=== PATIENT | male | born 1985 | race Caucasian/White ===

== ENCOUNTER 2018-02-16 12:04 | Observation (INO) | payer OTHER ==
[~2018-02-16] VITALS: Ht 180.3 cm; Wt 99.8 kg
--- NOTE | 2018-02-16 12:05 | NUR ---
PT AMBULATES TO BED 10 WITH LIMP
[2018-02-16 12:09] VITALS: BP 127/74
--- NOTE | 2018-02-16 12:09 | NUR ---
PATIENT PRESENTS TO ED WITH C/O NUMBNESS TO LLE , FOOT DROP X 2 DAYS---AWOKE WITH UNABLE TO AMBULATE NORMALLY STATES NUMBNESS FROM THIGH DOWN TO FOOT +2 PEDAL PULSE <3 SEC CAP REFILL; COLD LLE VS WARM RLE DENIES INJURY . PT STATES . DENIES N/V/D; SKIN IS PINK/WARM/DRY; AAOX4 WITH EVEN AND STEADY GAIT; LUNGS CLEAR BL; HR EVEN AND REGULAR; PT DENIES ANY FEVER, CP, SOB, OR COUGH AT THIS TIME; PATIENT STATES PAIN OF 7/10 AT THIS TIME; VSS; PATIENT POSITIONED FOR COMFORT; HOB ELEVATED; BEDRAILS UP X2; BED DOWN. ER MD MADE AWARE OF PT STATUS.
[2018-02-16] MEDS ORDERED: NACL 0.9% 1,000 ML IV ONE (12:30)
--- NOTE | 2018-02-16 12:30 | NUR ---
UNABLE TO INSERT IV LINE. CHARGE NURSE NOTIFIED
[2018-02-16 13:02] LABS: BASOPHILS % (AUTO) 0.5 % (0.0-2.0); EOSINOPHILS # (AUTO) 0.2 K/uL (0-0.4); EOSINOPHILS % (AUTO) 2.6 % (0.0-4.0); HEMATOCRIT 45.3 % (36-52); HEMOGLOBIN 14.6 g/dL (12.0-18.0); LYMPHOCYTES # (AUTO) 1.2 K/uL (2.0-11.5); MEAN CORPUSCULAR HEMOGLOBIN 28 pg (27-31); MEAN CORPUSCULAR HGB CONC 32 g/dL (33-37); MEAN CORPUSCULAR VOLUME 85.4 fL (80-94); MONOCYTES # (AUTO) 0.6 K/uL (0.8-1.0); MONOCYTES % (AUTO) 6.4 % (1.7-9.3); NEUTROPHILS # (AUTO) 6.7 K/uL (1.8-7.7); NEUTROPHILS % (AUTO) 76.5 % (42.2-75.2); PLATELET COUNT (AUTO) 341 K/uL (140-450); RED BLOOD CELL COUNT(AUTO) 5.31 MIL/uL (4.20-6.10); RED CELL DISTRIBUTION WIDTH 15.9 % (11.6-13.7); WHITE BLOOD COUNT (AUTO) 8.7 K/uL (4.8-10.8)
[2018-02-16 13:17] LABS: ALBUMIN 3.8 g/dL (3.4-5.0); ANION GAP 14.1 (8-16); CARBON DIOXIDE 27.4 mmol/L (21-32); CREATININE 0.9 mg/dL (0.7-1.3); POTASSIUM 3.5 mmol/L (3.5-5.1); TOTAL BILIRUBIN 0.2 mg/dL (0.0-1.0)
[2018-02-16 13:24] LABS: PROTHROMBIN TIME 9.3 secs (10.8-13.4)
--- NOTE | 2018-02-16 14:00 | NUR ---
DR. KNAPP, [facility], DAVID RN AT BEDSIDE FOR CENTRAL LINE INSERTION.
[2018-02-16] MEDS ORDERED: LORazepam 2 MG/ML VIAL IVP ONE (14:20)
[2018-02-16] MEDS ORDERED: LORazepam 2 MG/ML VIAL ONE (14:27)
--- NOTE | 2018-02-16 14:44 | NUR ---
PT RETURNED FROM CT
[2018-02-16] MEDS ORDERED: ONDANSETRON 4 MG/2 ML VIAL IVP PRN (17:20)
[2018-02-16] MEDS ORDERED: ACETAMINOPHEN 325 MG TAB PO PRN (17:20)
[2018-02-16] MEDS ORDERED: MORPHINE SULFATE 4 MG/ML SYR IVP PRN (17:20)
[2018-02-16] MEDS ORDERED: CYCLOBENZAPRINE 10 MG TAB PO PRN (17:25)
--- NOTE | 2018-02-16 17:51 | NUR ---
PT TAKEN TO [facility] FLOOR BY FREDRICK GUTIÉRREZ VIA WHEELCHAIR
--- NOTE | 2018-02-16 18:00 | NUR ---
Patient will be admitted to care of DR HYMAN. Admited to [facility] [[email or web address] Will go to room 120B. Belongings list completed. Report to FREDRICK RICH.
--- NOTE | 2018-02-16 18:10 | NUR ---
RECEIVED REPORT FROM ER NURSE FOR CONTINUITY OF CARE. PT IN STABLE CONDITION. RESPIRATIONS EVEN AND UNLABORED. SAFETY MEASURES IN PLACE. BED IN LOW POSITION. CALL LIGHT AT BEDSIDE. WILL CONTINUE TO MONITOR.
--- NOTE | 2018-02-16 19:28 | NUR ---
BEDSIDE REPORT GIVEN FROM RN HILARIO, PATIENT IN BED, ON RA, NO SIGHS OF ACUTE DISTRESS, ADMISSION QUESTIONED ANSWERED, NO IV ACCESS, PATIENT IS TO HAVE PICC LINE INSERTED, CONSENT IN CHART. UPDATED BOARD, EXPLAINED PLAN OF CARE, WILL CONTINUE TO MONITOR.
--- NOTE | 2018-02-16 19:28 | NUR ---
GAVE REPORT TO HEADSTART TEACHER NURSE FOR CONTINUITY OF CARE. PT IN STABLE CONDITION.
--- NOTE | 2018-02-16 19:45 | NUR ---
PICC LINE NURSE NING AND HEAT TREAT FURNACE OPERATOR AT BEDSIDE, CONSENT SIGNED AND IN CHART, SUPPLIES FOR PICC LINE INSERTION AT BEDSIDE. TIME OUT COMPLETED.
--- NOTE | 2018-02-16 20:00 | NUR ---
[facility] COLLECTED AND SENT TO LAB.
--- NOTE | 2018-02-16 20:15 | NUR ---
PICC LINE INSERTED ON RIGHT UPPER ARM, PLACED ORDER FOR XRAY, RADIOLOGIST TECH AT BEDSIDE.
--- NOTE | 2018-02-16 20:30 | NUR ---
DRESSING SLIGHT BLOOD NOTED, PATIENT DENIES PAIN, BLUE CAPS APPLIED, WILL CONTINUE TO MONITOR.
[2018-02-16 20:44] VITALS: BP 128/72
[2018-02-17] VITALS: BP 118/76
--- NOTE | 2018-02-17 | NUR ---
V/S TAKEN ALL WITHIN NORMAL LIMITS, PATIENT DENIES PAIN, CALL LIGHT WITHIN REACH, WILL CONTINUE TO MONITOR.
[2018-02-17] MEDS: HYDROcodone/APAP 5/325 MG 1 TAB TAB PO PRN ×3 (02:23→10:38)
--- NOTE | 2018-02-17 02:23 | NUR ---
PATIENT C/O PAIN IN LEFT FOOT 6/10, ACHING, MEDICATED ACCORDING TO MD ORDER FOR PAIN.
--- NOTE | 2018-02-17 04:10 | NUR ---
PATIENT RESTING IN BED, NO SIGNS OF ACUTE DISTRESS, CALL LIGHT WITHIN REACH, WILL CONTINUE TO MONITOR.
--- NOTE | 2018-02-17 06:23 | NUR ---
PICC LINE DRESSING CHANGED, PATIENT C/O PAIN 08/03 WILL MEDICATE ACCORDING TO MD ORDER.
--- NOTE | 2018-02-17 06:42 | NUR ---
PATIENT HAS BEEN SCREENED AND CATEGORIZED LOW NUTRITION RISK. PATIENT WILL BE SEEN WITHIN 7 DAYS OF ADMISSION. 02/23/18 CHITO ONOFRE MS, RDN
--- NOTE | 2018-02-17 07:08 | NUR ---
ENDORSED PATIENT TO DAY SHIFT NURSE, PATIENT STABLE.
--- NOTE | 2018-02-17 07:09 | NUR ---
RECEIVED REPORT FROM NEWSPAPER CARRIER NURSE. PATIENT LYING DOWN IN BED SLEEPING, AROUSABLE BY VOICE. NO DISTRESS NOTED. DENIES ANY PAIN AT THIS TIME. AAOX4, CALM, COOPERATIVE, SKIN COLOR APPROPRIATE TO ETHNICITY, WARM TO TOUCH. SKIN IS INTACT. HAS RIGHT UPPER ARM PICC LINE [address], INTACT, AND PATENT. ABLE TO AMBULATE INDEPENDENTLY WITH LIMPING GAIT ON LEFT LEG. ABDOMEN SOFT, NON-DISTENDED. LUNGS CTA ON ALL LOBES. RESPIRATIONS EVEN, UNLABORED, ON ROOM AIR. REVIEWED PLAN OF CARE WITH PATIENT. PATIENT VERBALIZED UNDERSTANDING. SAFETY MEASURES IN PLACE, CALL LIGHT WITHIN REACH. WILL CONTINUE TO MONITOR.
[2018-02-17 07:47] LABS: CARBON DIOXIDE 28.1 mmol/L (21-32); CREATININE 0.8 mg/dL (0.7-1.3)
[2018-02-17 07:50] LABS: BASOPHILS # (AUTO) 0.1 K/uL (0.00-0.22); BASOPHILS % (AUTO) 0.6 % (0.0-2.0); EOSINOPHILS # (AUTO) 0.2 K/uL (0-0.4); EOSINOPHILS % (AUTO) 2.4 % (0.0-4.0); HEMATOCRIT 41.1 % (36-52); HEMOGLOBIN 13.2 g/dL (12.0-18.0); LYMPHOCYTES # (AUTO) 1.9 K/uL (2.0-11.5); LYMPHOCYTES % (AUTO) 17.7 % (20.5-51.1); MEAN CORPUSCULAR HEMOGLOBIN 27 pg (27-31); MEAN CORPUSCULAR HGB CONC 32 g/dL (33-37); MEAN CORPUSCULAR VOLUME 85.2 fL (80-94); MONOCYTES # (AUTO) 0.7 K/uL (0.8-1.0); MONOCYTES % (AUTO) 6.9 % (1.7-9.3); NEUTROPHILS # (AUTO) 7.7 K/uL (1.8-7.7); NEUTROPHILS % (AUTO) 72.4 % (42.2-75.2); PLATELET COUNT (AUTO) 297 K/uL (140-450); RED BLOOD CELL COUNT(AUTO) 4.83 MIL/uL (4.20-6.10); RED CELL DISTRIBUTION WIDTH 16.2 % (11.6-13.7); WHITE BLOOD COUNT (AUTO) 10.6 K/uL (4.8-10.8)
[2018-02-17 07:51] LABS: MAGNESIUM 2.2 mg/dL (1.8-2.4); PHOSPHORUS 2.8 mg/dL (2.5-4.9)
[2018-02-17 07:54] VITALS: BP 125/65
[2018-02-17 08:15] LABS: ANION GAP 11.6 (8-16); POTASSIUM 3.7 mmol/L (3.5-5.1)
[2018-02-17] MEDS ORDERED: NICOTINE TRANSD SYS 14 MG/24 HR PATCH TD SCH (09:05)
--- NOTE | 2018-02-17 09:31 | NUR ---
RECEIVED REPORT FROM ELAINA ALCALA. PATIENT RESTING IN BED, AOX4. NO DISTRESS NOTED. NO C/O PAIN OR DISCOMFORT AT THIS TIME. SKIN INTACT. HAS RIGHT UPPER ARM PICC LINE [address], PATENT AND ASYMPTOMATIC. PER ELAINA ALCALA, PT IS ABLE TO AMBULATE INDEPENDENTLY WITH LIMPING GAIT ON LEFT LEG. ALL SAFETY MEASURES IN PLACE, CALL LIGHT WITHIN REACH. WILL CONTINUE TO MONITOR.
--- NOTE | 2018-02-17 09:46 | NUR ---
GAVE REPORT TO FREDRICK SCHERER FOR CONTINUITY OF CARE. PATIENT IN STABLE CONDITION.
[2018-02-17] MEDS ORDERED: NICOTINE TRANSD SYS 21 MG/24 HR PATCH TD SCH (10:07)
--- NOTE | 2018-02-17 11:54 | NUR ---
WRAPPED IV SITE AND COVERED NICOTINE PATCH WITH PATCH. HELPED PATIENT TO THE SHOWER. GAIT EVEN AND STEADY WITH SLIGHT LIMP TO LT LEG. AOX4. ALL SAFETY PRECAUTIONS IN PLACE, WILL CONTINUE TO MONITOR.
--- NOTE | 2018-02-17 12:23 | NUR ---
DR. HYMAN HAS SEEN PATIENT AND DISCUSSED POC WITH PATIENT. PT VERBALIZED COMPLETE UNDERSTANDING.
[2018-02-17] MEDS ORDERED: CYCL10TA14 PO (12:25)
[2018-02-17] MEDS ORDERED: ACET-9525 PO (12:25)
[2018-02-17] MEDS ORDERED: GABA300C PO (12:25)
--- NOTE | 2018-02-17 13:30 | NUR ---
FOR HOME HEALTH PHYSICAL THERAPY, PT PREFERS TO BE CALLED AT [phone] (SAMY HIGUERA - MOTHER).
--- NOTE | 2018-02-17 13:35 | NUR ---
ALL DISCHARGE PAPERWORK GIVEN TO PT. NEW PRESCRIPTIONS GIVEN TO PT ALONG WITH MEDICATION TEACHING. PT INSTRUCTED TO FOLLOW UP WITH PCP WITHIN 1-2 WEEKS. HOME HEALTH PT WILL BE SET UP BY SS. PT VERBALIZED COMPLETE UNDERSTANDING OF ALL DISCHARGE TEACHING. PT REFUSED FLU VACCINE. RT UA PICC LINE REMOVED WITH MINIMAL BLOOD LOSS AND LUMEN COMPLETELY INTACT. ID BANDS REMOVED. ALL PERSONAL BELONGINGS ARE WITH PATIENT. PT DISCHARGED FROM UNIT VIA WHEELCHAIR.
[2018-02-18] MEDS ORDERED: NICOTINE TRANSD SYS 21 MG/24 HR PATCH TD SCH (09:00)
[2018-02-18] MEDS ORDERED: NICOTINE TRANSD SYS 14 MG/24 HR PATCH TD SCH (09:00)
--- NOTE | 2018-02-18 11:10 | NUR ---
HAD AN ORDER FOR HOME HEALTH FOR SAFETY DESIREE AND HOME P.T. I CALLED [facility] AND SPOKE WITH OSMANI AND FAXED ORDER, H&P AND FACE SHEET TO HER AT [phone]. PHONE [phone]. OSMANI SAID SHE WOULD TAKE CARE OF [facility].
== END 2018-02-17 13:35 | disposition home health service (06) ==
LOC: MED 12:04 → MTU 17:19
PROVIDERS: ADMIT Internal Medicine Pulmonary Disease; ATTEND Internal Medicine Pulmonary Disease
DX: M51.36 Other intervertebral disc degeneration, lumbar region (principal); M51.16 Intervertebral disc disorders with radiculopathy, lumbar region; R26.2 Difficulty in walking, not elsewhere classified; F17.200 Nicotine dependence, unspecified, uncomplicated
CPT/HCPCS: 36415; 70450; 71045; 72131; 76937; 80048; 80053; 83735; 84100; 85025; 85610; 85730; 87081; 96374; 99284; C1751; G0378; J2060; Q0092; 96372; 99285; J7030

== ENCOUNTER 2019-02-23 03:00 | Emergency (ER) | payer SELFPAY ==
[~2019-02-23] VITALS: Ht 182.9 cm; Wt 99.8 kg
[~2019-02-23 03:00] MED LIST: ACET-9525 PO; CYCL10TA14 PO; GABA300C PO
[2019-02-23 03:05] VITALS: BP 150/76
--- NOTE | 2019-02-23 03:05 | NUR ---
TO BED # 03 AMBULATORY
--- NOTE | 2019-02-23 03:25 | NUR ---
Note gioone in EDM - 02/23/19 at 0447 by ALHAJI PT DISCHARGED WITH PAPERWORK. EDUCATED PT REGARDING MEDICATIONS AND D/C INSTRUCTIONS. PT VERBALIZED UNDERSTANDING OF TEACHING. TOLD PT TO FOLLOW UP WITH PCP AND WHEN TO RETURN TO ED. PT STABLE CONDITION. ALL QUESTIONS ANSWERED.
--- NOTE | 2019-02-23 03:37 | NUR ---
34 Y/O MALE PRESENTS TO ED, C/O LEFT FINGER PAIN 10/03. PAIN STARTED LAST FRIDAY. LEFT MIDDLE FINGER HAS SWELLING AND REDNESS; WARM TO TOUCH. LIMITED ROM ON AFFECTED DIGIT DUE TO PAIN AND SWELLING. PT DENIES TAKING ANY MEDICATIONS PRIOR COMING TO ED. PT AT STABLE CONDITION. ERMD AWARE. WILL CONTINUE TO MONITOR.
--- NOTE | 2019-02-23 03:44 | NUR ---
XRAY AT BEDSIDE
[2019-02-23] MEDS ORDERED: CEPHALEXIN 500 MG CAP PO ONE (03:50)
[2019-02-23] MEDS ORDERED: SULFAMETH/TRIMETH DS 800/160MG 1 TAB PO ONE (03:50)
[2019-02-23] MEDS ORDERED: IBUPROFEN 800 MG TAB PO ONE (03:50)
[2019-02-23 04:25] VITALS: BP 143/77
--- NOTE | 2019-02-23 04:25 | NUR ---
PT DISCHARGED WITH PAPERWORK. EDUCATED PT REGARDING MEDICATIONS AND D/C INSTRUCTIONS. PT VERBALIZED UNDERSTANDING OF TEACHING. TOLD PT TO FOLLOW UP WITH PCP AND WHEN TO RETURN TO ED. PT STABLE CONDITION. ALL QUESTIONS ANSWERED.
== END 2019-02-23 04:25 | disposition home or self-care (01) ==
LOC: MED 03:00
DX: L03.012 Cellulitis of left finger (principal); R03.0 Elevated blood-pressure reading, without diagnosis of hypertension; Z79.899 Other long term (current) drug therapy
CPT/HCPCS: 73140; 99284; Q0092

== ENCOUNTER 2019-06-20 11:45 | Inpatient (IN) | payer SELFPAY ==
[~2019-06-20] VITALS: Ht 182.9 cm; Wt 90.7 kg
--- NOTE | 2019-06-20 11:48 | NUR ---
PT TAKEN TO BED 6.
[2019-06-20 11:52] VITALS: BP 124/73
[2019-06-20] MEDS ORDERED: AMPICILLIN/SULBACTAM 3 GM in NACL 0.9% MINI-BAG PLUS 100 ML IV ONE (12:15)
[2019-06-20] MEDS ORDERED: KETOROLAC 30 MG/ML VIAL IVP ONE (12:15)
[2019-06-20] MEDS ORDERED: NACL 0.9% 1,000 ML IV SCH (12:15)
[2019-06-20 12:30] LABS: BASOPHILS % (AUTO) 0.2 % (0.0-2.0); EOSINOPHILS # (AUTO) 0.4 K/uL (0-0.4); HEMOGLOBIN 12.6 g/dL (12.0-18.0); LYMPHOCYTES # (AUTO) 1.4 K/uL (2.0-11.5); LYMPHOCYTES % (AUTO) 10.3 % (20.5-51.1); MEAN CORPUSCULAR HEMOGLOBIN 28 pg (27-31); MEAN CORPUSCULAR HGB CONC 32 g/dL (33-37); MEAN CORPUSCULAR VOLUME 85.5 fL (80-94); MONOCYTES # (AUTO) 1.2 K/uL (0.8-1.0); MONOCYTES % (AUTO) 8.7 % (1.7-9.3); NEUTROPHILS # (AUTO) 10.6 K/uL (1.8-7.7); NEUTROPHILS % (AUTO) 77.8 % (42.2-75.2); PLATELET COUNT (AUTO) 320 K/uL (140-450); RED BLOOD CELL COUNT(AUTO) 4.57 MIL/uL (4.20-6.10); RED CELL DISTRIBUTION WIDTH 13.8 % (11.6-13.7); WHITE BLOOD COUNT (AUTO) 13.6 K/uL (4.8-10.8)
[2019-06-20] MEDS ORDERED: AMPICILLIN/SULBACTAM 3 GM VIAL ONE (12:48)
[2019-06-20 13:08] LABS: ANION GAP 14.4 (8-16); CREATININE 0.9 mg/dL (0.6-1.3); POTASSIUM 3.4 mmol/L (3.5-5.1)
--- NOTE | 2019-06-20 14:22 | NUR ---
Stable VSS Afebrile Minimal pain MD has spoke to patient and a call is out for primary Awaiting return call Has had Abx as ordered
[2019-06-20] MEDS ORDERED: DOCUSATE SODIUM 100 MG GELCAP PO PRN (15:10)
[2019-06-20] MEDS ORDERED: ACETAMINOPHEN 325 MG TAB PO PRN (15:10)
[2019-06-20] MEDS ORDERED: LORazepam 2 MG/ML VIAL IM/IVP PRN (15:10)
[2019-06-20] MEDS ORDERED: HYDROcodone/APAP 5/325 MG 1 TAB TAB PO PRN (15:10)
[2019-06-20] MEDS ORDERED: ONDANSETRON 4 MG/2 ML VIAL IM/IVP PRN (15:10)
[2019-06-20] MEDS ORDERED: ZOLPIDEM 5 MG TAB PO PRN (15:10)
[2019-06-20] MEDS ORDERED: MORPHINE SULFATE 2 MG/ML SYR IVP PRN (15:10)
[2019-06-20] MEDS: NACL 0.9% 1,000 ML IV SCH (15:27)
[2019-06-20] MEDS ORDERED: VANCOMYCIN 1,000 MG in DEXTROSE 5% 250 ML IV ONE (16:00)
[2019-06-20] MEDS ORDERED: VANCOMYCIN 1,000 MG VIAL ONE (16:23)
[2019-06-20 16:30] LABS: PROTHROMBIN TIME 9.8 secs (10.8-13.4)
[2019-06-20 16:45] LABS: FREE T4 (FREE THYROXINE) 0.91 ng/dL (0.76-1.46); MAGNESIUM 2.3 mg/dL (1.8-2.4); THYROID STIMULATING HORMONE 1.42 uIU/mL (0.34-3.74)
[2019-06-20 17:13] LABS: CHOL/HDL RATIO 3.7 (1-4.5)
[2019-06-20 17:15] LABS: CARBON DIOXIDE 25.4 mmol/L (21-32); POTASSIUM 3.4 mmol/L (3.5-5.1)
[2019-06-20 17:16] LABS: ALBUMIN 3.5 g/dL (3.4-5.0); CREATININE 0.9 mg/dL (0.6-1.3); TOTAL BILIRUBIN 0.6 mg/dL (0.0-1.0)
--- NOTE | 2019-06-20 17:19 | NUR ---
Stable. VSS. Afebrile. Minimal pain. Second Abx given as ordered. Has had 1 liter of NS and is recieving NS at 130 Q HR. Has been admitted Awaiting bed on floor
[2019-06-20 17:25] LABS: APPEARANCE,URINE CLEAR (CLEAR); BILIRUBIN,URINE NEGATIVE (NEGATIVE); BLOOD, URINE NEGATIVE (NEGATIVE); LEUKOCYTE ESTERASE ,URINE NEGATIVE (NEGATIVE); NITRITE, URINE NEGATIVE (NEGATIVE); PH,URINE 6.5 (5.0-9.0); UGLUCOSE NEGATIVE (NEGATIVE)
[2019-06-20 17:27] LABS: COLOR,URINE AMBER (YELLOW)
[2019-06-20 17:37] LABS: BARBITURATE, URINE NEGATIVE ng/ml (NEG <=200); BENZODIAZEPINE, URINE NEGATIVE ng/mL (NEG <=200); CANNABINOID, URINE NEGATIVE ng/mL (NEG <=50); COCAINE, URINE NEGATIVE ng/mL (NEG <=300)
[2019-06-20 17:38] LABS: OPIATE, URINE POSITIVE ng/mL (NEG <=2000); PHENCYCLIDINE SCREEN,URINE NEGATIVE ng/mL (NEG <=25)
[2019-06-20] MEDS ORDERED: LORazepam 2 MG/ML VIAL IVP ONE (18:50)
[2019-06-20] MEDS ORDERED: NICOTINE TRANSD SYS 21 MG/24 HR PATCH TD SCH (20:00)
--- NOTE | 2019-06-20 21:41 | NUR ---
PT SLEEPING IN BED, VISIBLE SYMMETRICAL RISE AND FALL OF CHEST, NO DISTRESS NOTED, VSS
--- NOTE | 2019-06-21 00:08 | NUR ---
PT ASLEEP IN BED. RR EVEN AND UNLABORED. VSS. ALL NEEDS MET WILL CONTINUE TO MONTIOR.
[2019-06-21] MEDS ORDERED: VANCOMYCIN PER PHARMACY MC PRN (00:45)
[2019-06-21] MEDS ORDERED: VANCOMYCIN 1,000 MG in DEXTROSE 5% 250 ML IV ONE (01:10)
[2019-06-21] MEDS ORDERED: VANCOMYCIN 1,000 MG VIAL ONE (01:46)
--- NOTE | 2019-06-21 01:57 | NUR ---
PT SLEEPING IN BED, AROUSABLE TO LIGHT SHAKING, PT AAOX4, VSS.
--- NOTE | 2019-06-21 06:15 | NUR ---
PTSLEEPING IN BED, AROUSABLE TO VOICE, AAOX4, COOPERATIVE SPEAKING IN FULL COMPLETE SENTENCES, DENIES PAIN AT THIS TIME, VSS.
[2019-06-21] MEDS: NACL 0.9% 1,000 ML IV SCH ×2 (06:34→08:48)
--- NOTE | 2019-06-21 07:05 | NUR ---
RECEIVED PT. FROM ER NURSE. PT. IS AWAKE AND IN BED. PT. IS ON ROOM AIR WITH O2 STAT OF 99%. IV IS ON THE RIGHT AC 20G WITH NS RUNNING AT 130ML/HR. IV SITE PATENT AND FLUSHES WELL. SKIN IS NOT INTACT, WITH ESCORIATION ON THE LEFT UPPER ARM. PT. STATES RECEIVING THE WOUND FROM NEEDLE INJECTION OF A SUBSTANCE. PT. IS AAOX4 AND APPEARS ANXIOUS. PLAN OF CARE DISCUSSED. CALL LIGHT WITHIN REACH. UNIVERSAL PRECAUTION INITIATED. WILL CONTINUE TO MONITOR.
--- NOTE | 2019-06-21 07:05 | NUR ---
Patient will be admitted to care of [facility]. Admited to GEE/SURG. Will go to room 105A. Belongings list completed. Report to BILLY ALCALA.
--- NOTE | 2019-06-21 07:50 | NUR ---
PT. STATES WANTING TO LEAVE AMA D/T MISSING PUNCH DRINK FROM ER. CALLED ER ABOUT DRINK AND CONFIRMED THAT IT WAS THROWN AWAY. PT. IS AWARE AND WANTS TO LEAVE AMA. WILL INFORM
[2019-06-21 08:00] VITALS: BP 107/60
--- NOTE | 2019-06-21 09:49 | NUR ---
PATIENT HAS BEEN SCREENED AND CATEGORIZED LOW NUTRITION RISK. PATIENT WILL BE SEEN WITHIN 7 DAYS OF ADMISSION. 06/27/[address]
--- NOTE | 2019-06-21 10:20 | NUR ---
DR. MADERA BY THE BEDSIDE, EXPLAINED BENEFITS AND CONSEQUENCE OF LEAVING AMA. PT. AGREES TO STAY BUT STILL REFUSES TO REINSERT IV. WILL CONTINUE TO MONITOR.
--- NOTE | 2019-06-21 10:30 | NUR ---
PT. IS DETERMINED TO LEAVE AMA D/T MISSING DENTAL AIDE. LOOKED FOR DENTAL AIDE TOGETHER BUT NOT FOUND. REMOVED IV, DR. MADERA IS AWARE AND SIGNED AMA FORM. RE-EXPLAINED TO PT. DISADVANTAGES OF LEAVING AMA, YET PT. IS DETERMINED. WILL CONTINUE TO MONITOR.
[2019-06-21] MEDS ORDERED: VANCOMYCIN HCL 1.25 GM in DEXTROSE 5% 250 ML IV SCH (11:00)
--- NOTE | 2019-06-21 11:10 | NUR ---
PT. SIGNED AMA FORM, PT. LEFT THE UNIT BY THE SIDE DOOR.
[2019-06-21] MEDS ORDERED: MORPHINE SULFATE 2 MG/ML SYR IVP SCH (12:00)
--- NOTE | 2019-06-21 14:05 | NUR ---
Strategic Partnership Manager Note: Basic Screen: Yes High Risk DC Screen Fitzgerald: ROSALBA LOPEZ Home Relationship: FRIEND Pre-Admission Living Arrangements: Other Prior ADL Independent Current Home Health Name/Tel: N/A Current DME/02 Name/Tel: N/A Current Hospice Name/Tel: N/A Current Dialysis Name/Tel: N/A Healthcare Decision Maker: Patient Advance Directive No Physician Orders for Life Sustaining Treatment Form No Patient/Family Have Educational Needs No Discipline: Case Mgt/Social Svcs Tentative Discharge Plan/Destination: No Needs Identified Will require assistance post discharge: No Referred to String Top Sealer: No Tentative Discharge Plan Summary: Patient is a 34-year-old male admitted for cellulitis. Patient has PMHX of hep-c and polysubstance abuse disorder. Patient was admitted from home. SW contacted patient's emergency contact, Rosalba Lopez [phone]. Per Rosalba, patient is indepenednt with ADLs, and has no history of mental health. Rosalba stated that patient has an extensive substance abuse history. SW went to patient's room to provide substance abuse resources but patient was discharged. Signature: DA Delgado Date: Jun 21, 2019 Time: 14:02
== END 2019-06-21 11:30 | disposition left against medical advice (07) | DRG 872 ==
LOC: MED 11:45 → MMU 14:40 → MTU 14:41
PROVIDERS: ADMIT General Practice; ATTEND General Practice
PROC: 3E0234Z Introduction of Serum, Toxoid and Vaccine into Muscle, Percutaneous Approach (ICD-10-PCS; principal; 2019-06-20)
DX: A41.9 Sepsis, unspecified organism (principal); L03.114 Cellulitis of left upper limb; F17.210 Nicotine dependence, cigarettes, uncomplicated; E87.6 Hypokalemia; B19.20 Unspecified viral hepatitis C without hepatic coma; F15.10 Other stimulant abuse, uncomplicated; F12.10 Cannabis abuse, uncomplicated; Z53.29 Procedure and treatment not carried out because of patient's decision for other reasons; Z23 Encounter for immunization
CPT/HCPCS: 36415; 71045; 76881; 80048; 80053; 80305; 81003; 82150; 82550; 83036; 83605; 83690; 83735; 83880; 84100; 84439; 84443; 84484; 85025; 85610; 85651; 85730; 86140; 87040; 87086; 90471; 90715; 93971; 96365; 96375; 99291; J0295; J1885; J2060; J2270; J3370; J7060; Q0092